=== PATIENT | female | born 1960 | race Caucasian/White ===

== ENCOUNTER → 2016-04-28 | Outpatient (CLI) | payer BC ==
[~2016-04-28] MED LIST: AZIT250T PO; CLN200 PO; FLUO20CA34 PO; HYDR-5688 PO; PRM625 PO; SULF800T23 PO; ZTHM250 PO
== END | disposition home or self-care (01) ==
LOC: C.PATH 15:53
PROVIDERS: ATTEND Obstetrics & Gynecology
DX: N90.89 Other specified noninflammatory disorders of vulva and perineum (principal)

== ENCOUNTER → 2016-05-14 | Outpatient (CLI) | payer BC ==
--- NOTE | 2016-05-14 17:07 | MAMMOGRAPHY REPORT ---
BILATERAL DIGITAL SCREENING MAMMOGRAM TOMOSYNTHESIS WITH CAD: 05/14/2016 CLINICAL HISTORY: Routine screening. Patient has no complaints. TECHNIQUE: Breast tomosynthesis in addition to standard 2D mammography was performed. Current study was also evaluated with a Computer Aided Detection (CAD) system. COMPARISON: Comparison is made to exams dated: 02/27/2015 mammogram, 01/18/2014 mammogram, 01/17/2013 mammogram, 11/20/2009 mammogram - [facility], 07/24/2008, and 07/23/2007. BREAST COMPOSITION: The tissue of both breasts is almost entirely fatty. FINDINGS: A 5 mm low-density circumscribed mass in the 12:00 anterior left breast has not significan tly changed in size dating back to 01/17/2013, therefore likely benign. No new suspicious mass, arc hitectural distortion or cluster of microcalcifications is seen. IMPRESSION: ACR BI-RADS CATEGORY 1: NEGATIVE There is no mammographic evidence of malignancy. A 1 year screening mammogram is recommended. The p atient will receive written notification of the results. Approximately 10% of breast cancers are not detected with mammography. A negative mammographic repor t should not delay biopsy if a clinically suggestive mass is present. Anila Pittman M.D. ay/:05/14/2016 15:32:59 [place] St[employer]cher: Lorraine GUNN)(Nick), [facility] letter sent: Normal 1/2 BI-RADS Code: ACR BI-RADS Category 1: Negative
== END | disposition home or self-care (01) ==
LOC: C.MAMM 10:34
PROVIDERS: ATTEND Internal Medicine
DX: Z12.31 Encounter for screening mammogram for malignant neoplasm of breast (principal)

== ENCOUNTER → 2016-06-12 | Outpatient (CLI) | payer BC | END | disposition home or self-care (01) | LOC: C.LABSPEC 15:21 | PROVIDERS: ATTEND Internal Medicine | DX: J02.9 Acute pharyngitis, unspecified (principal) ==

== ENCOUNTER → 2016-07-09 | Outpatient (CLI) | payer BC | END | disposition home or self-care (01) | LOC: C.LABSPEC 10:22 | PROVIDERS: ATTEND Internal Medicine | DX: B34.9 Viral infection, unspecified (principal) ==

== ENCOUNTER 2016-07-13 15:28 | Emergency (ER) | payer BC ==
[~2016-07-13] VITALS: Ht 157.5 cm; Wt 71.8 kg
[~2016-07-13 15:28] MED LIST changes: -AZIT250T PO; -FLUO20CA34 PO; -PRM625 PO; -ZTHM250 PO
[2016-07-13 15:33] VITALS: TEMP 36.9; Ht 157.5 cm; Wt 71.8 kg
--- NOTE | 2016-07-13 16:37 | DIAGNOSTIC IMAGING REPORT ---
RIGHT WRIST W/NAVICULAR MIN 3 VIEWS CLINICAL HISTORY: Right wrist pain and swelling following fall. COMPARISON: None FINDINGS: No acute fracture is identified within the right wrist. Alignment is anatomic. Mild degenerative changes are present. IMPRESSION: No acute fracture or dislocation of the right wrist. Electronically signed by: Keith Gaytan M.D. 07/13/2016 4:36 PM Dictated Date/Time: 07/13/2016 4:36 PM
--- NOTE | 2016-07-13 16:39 | DIAGNOSTIC IMAGING REPORT ---
LEFT WRIST W/NAVICULAR MIN 3 VIEWS CLINICAL HISTORY: Left wrist pain, bruising COMPARISON: None FINDINGS: Alignment of the left wrist is anatomic. No acute fracture is identified. Mild degenerative changes are present. IMPRESSION: No acute fracture or dislocation of the left wrist. Electronically signed by: Keith Gaytan M.D. 07/13/2016 4:37 PM Dictated Date/Time: 07/13/2016 4:37 PM
--- NOTE | 2016-07-13 16:55 | EMERGENCY ROOM VISIT NOTE ---
ED Visit Note First contact with patient: 15:39 CHIEF COMPLAINT: Wrist injury HISTORY OF PRESENT ILLNESS: This 56-year-old right-hand dominant female patient presents to the emergency department ambulatory complaining of pain in the right wrist and mild pain in the left wrist after a fall which occurred yesterday. The patient reports that she was rollerskating with her grandchildren and fell, landing onto her back. She attempted to catch herself with both of her wrists. She reports moderate pain in the right wrist and only minimal pain in the left wrist. She does state there is some bruising in the left wrist. She states the right wrist is swollen and very painful to move. She rates the discomfort a 6.5/10. She has not been taking anything at home for the pain. No laceration, no weakness. No numbness or tingling. The patient denies any other injury. The patient is able to move their fingers and elbows without difficulty. The patient has not had previous fractures of either wrist. REVIEW OF SYSTEMS: A 6 system review of systems was performed with positives and pertinent negatives in the HPI. ALLERGIES: No known drug allergies MEDICATIONS: Premarin, Prozac PMH: No significant past medical history. SOCIAL HISTORY: The patient lives locally with family. PHYSICAL EXAM: Vital Signs: Reviewed Nurse's notes, vital signs stable. GENERAL : This is a 56-year-old female, in no acute distress, but appears to be in pain , well-developed, well-nourished. NEURO: Alert and oriented to person place and time. Normal sensation to light and sharp touch. MUSCULOSKELETAL: There is no deformity of either wrist. There is a moderate amount of edema and tenderness over the dorsal aspect of the right wrist. Range of motion of the right wrist is limited secondary to patient discomfort. There is no significant ecchymosis or snuffbox tenderness. There is a small amount of ecchymosis over the ventral aspect of the left wrist. Mild tenderness to palpation. No snuff box tenderness or significant edema. Mud Engineer strength is 5/5 bilaterally. Range of motion of the fingers is full bilaterally. No tenderness of either proximal forearm. Radial pulses 2+. SKIN: Normal and intact. The hand is warm and well perfused with capillary refill less than 2 seconds. RADIOGRAPHIC FINDINGS: RIGHT WRIST W/NAVICULAR MIN 3 VIEWS CLINICAL HISTORY: Right wrist pain and swelling following fall. COMPARISON: None FINDINGS: No acute fracture is identified within the right wrist. Alignment is anatomic. Mild degenerative changes are present. IMPRESSION: No acute fracture or dislocation of the right wrist. LEFT WRIST W/NAVICULAR MIN 3 VIEWS CLINICAL HISTORY: Left wrist pain, bruising COMPARISON: None FINDINGS: Alignment of the left wrist is anatomic. No acute fracture is identified. Mild degenerative changes are present. IMPRESSION: No acute fracture or dislocation of the left wrist. EMERGENCY DEPARTMENT COURSE: I examined the patient. X-rays of bilateral wrists were obtained and read by radiology. No fractures were identified in either wrist. The patient does have significant tenderness and moderate swelling of the right wrist. This wrist was placed in a wrist lacer brace and the patient was instructed to follow-up with orthopedics if she has continued pain or any worsening symptoms. Conservative measures were discussed. The patient verbalized understanding of my assessment and treatment plan and was discharged home in good condition. DIAGNOSIS: Wrist injury Problem List Medical Problems: (1) Depressive Disorder Nec Status: Chronic Surgical Problems: (1) History of hysterectomy Status: Resolved Current/Historical Medications Scheduled Estrogens, Conjugated (Premarin), 0.625 MG PO DAILY Fluoxetine Hcl (Prozac), 20 MG PO DAILY Allergies Coded Allergies: No Known Allergies (Verified , 07/13/16) Vital Signs Date Time Temp Pulse Resp B/P Pulse Ox O2 Delivery O2 Flow Rate FiO2 07/13/16 17:09 72 18 138/94 98 07/13/16 15:33 36.9 82 16 144/84 97 Room Air Departure Information Impression Primary Impression: Wrist injuries Dispostion Home / Self-Care Condition GOOD Referrals Lorne Liao M.D. (PCP) Patient Instructions My [facility] Additional Instructions You have been treated in the Emergency Department for Wrist Pain. For pain control, you can use the following cdaw-oqa-chynyss medicines (if >12 yo): - Regular strength (325mg/tab) Tylenol (acetaminophen) 2 tabs every 4-6 hours as needed. Do not exceed 12 tablets in a 24 hour period. Avoid taking more than 4 grams (4000 mg) of Tylenol per day. This includes any other sources of acetaminophen you may take on a regular basis. - Regular strength (200 mg/tab) Advil (ibuprofen) 1-2 tabs every 4-6 hours as needed. Do not exceed a dose of 3200 mg per day. If this is a recent injury (<24 hrs), ice can be applied to the area of pain for the first 3 days to help decrease pain and inflammation. Wear the brace for 1 week, then as needed for pain or difficulty moving the wrist. Follow-up with orthopedics if you have persistent pain in one week or any worsening symptoms. Return to the Emergency Department if your current symptoms worsen despite treatment course outlined above, or if you develop any of the following symptoms : intractable pain despite aforementioned treatment course or new onset of numbness or tingling of the fingers. Problem Qualifiers Primary Impression: Wrist injuries Encounter type: initial encounter Laterality: unspecified laterality Qualified Codes: S69.90XA - Unspecified injury of unspecified wrist, hand and finger(s), initial encounter
[2016-07-13 17:09] VITALS: BP 138/94; PULSE 72; O2SAT 98
[2016-11-30] MEDS ORDERED: PRM625 PO (11:36)
[2016-11-30] MEDS ORDERED: FLUO20CA34 PO (11:36)
== END 2016-07-13 17:11 | disposition home or self-care (01) ==
LOC: C.EDB 15:29 → C.EDD 17:11
DX: S69.91XA Unspecified injury of right wrist, hand and finger(s), initial encounter (principal); S69.92XA Unspecified injury of left wrist, hand and finger(s), initial encounter; W18.30XA Fall on same level, unspecified, initial encounter; Y93.51 Activity, roller skating (inline) and skateboarding; F32.9 Major depressive disorder, single episode, unspecified

== ENCOUNTER 2016-11-30 18:45 | Emergency (ER) | payer BC ==
[~2016-11-30] VITALS: Ht 157.5 cm; Wt 69.9 kg
[~2016-11-30 18:45] MED LIST changes: -CLN200 PO; +FLUO20CA34 PO; -HYDR-5688 PO; +PRM625 PO; -SULF800T23 PO
[2016-11-30 18:48] VITALS: TEMP 36.8; Ht 157.5 cm; Wt 69.9 kg
[2016-11-30] MEDS ORDERED: ONDANSETRON INJ 2 MG/ML 2 ML VIAL IV STA (19:07)
[2016-11-30] MEDS ORDERED: GI COCKTAIL PO STA (19:07)
[2016-11-30] MEDS ORDERED: FAMOTIDINE 20MG/102 ML D5W IV STA (19:07)
[2016-11-30] MEDS ORDERED: SODIUM CHLORIDE 0.9% 1000ML 1,000 ML IV STA (19:07)
[2016-11-30] MEDS ORDERED: LIDOCAINE HCL 2% VISC SOLN 20 ML UDC ONE (19:19)
[2016-11-30] MEDS ORDERED: ALUMINUM/MAGNESIUM SUSP 30 ML UDC ONE (19:19)
--- NOTE | 2016-11-30 19:20 | EMERGENCY ROOM VISIT NOTE ---
History Report prepared by Carly: Lakshmi Beltran Under the Supervision of: Dr. Mik Winters M.D. First contact with patient: 18:56 Chief Complaint: CHEST PAIN Stated Complaint: CHEST PAIN, NUMBNESS IN RT ARM Nursing Triage Summary: Pt mid chest pain into right elbow. Pain started Thursday and it's getting worse. Denies known injury. Sharp at times, ache contstant. History of Present Illness The patient is a 56 year old female who presents to the Emergency Room with complaints of an episode of chest pain starting five days ago. The patient states that the pain was dull. She states that it then became worse two days ago. She states that this is when she started alternating Tylenol and Advil, but received little relief. The patient notes that the pain feels like it is constantly aching. She notes that the pain goes into her arm and has caused her armpit to become numb. The patient complains of shortness of breath, loss of appetite, diaphoresis, back pain, and fatigue. She notes her symptoms are worse with exertion. The patient denies ever having these symptoms before, nausea, vomiting, chills, fever, cough, congestion, recent travel, leg swelling, a history of blood clots, and a history of gallstones. The patient notes a history of squamous cell skin cancer and peptic ulcer. She notes a family history of CAD, cancer, and blood clots. Source of History: patient Onset: five days ago Position: chest Quality: ache, dull Timing: other (episode) Modifying Factors (Worsening): exertion Associated Symptoms: + diaphoresis, + SOB, + back pain, + fatigue, + numbness, No fevers, No chills, No cough, No nausea, No vomiting Note: The patient complains of loss of appetite. The patient denies ever having these symptoms before, congestion, recent travel, leg swelling, a history of blood clots, and a history of gallstones. Review of Systems See HPI for pertinent positives and negatives. A total of ten systems were reviewed and were otherwise negative. Past Medical & Surgical Medical Problems: (1) Depressive Disorder Nec (2) Peptic ulcer (3) Squamous cell skin cancer Surgical Problems: (1) History of hysterectomy Family History Blood clots Cancer Heart disease Social History Smoking Status: Current Every Day Smoker Housing Status: lives with family Occupation Status: employed Current/Historical Medications Scheduled Azithromycin (Azithromycin), 1 TAB PO DAILY Azithromycin (Zithromax), 250 MG PO DAILY Estrogens, Conjugated (Premarin), 0.625 MG PO DAILY Fluoxetine Hcl (Prozac), 20 MG PO DAILY Allergies Coded Allergies: No Known Allergies (Verified , 07/13/16) Physical Exam Vital Signs Date Time Temp Pulse Resp B/P (MAP) Pulse Ox O2 Delivery O2 Flow Rate FiO2 11/30/16 23:20 66 11/30/16 22:53 69 18 149/80 98 Room Air 11/30/16 20:51 64 18 142/80 97 Room Air 11/30/16 19:38 70 11/30/16 19:32 98 Room Air 11/30/16 18:51 98 Room Air 11/30/16 18:48 36.8 90 18 165/89 98 Room Air Physical Exam GENERAL: Awake, alert, well-appearing, in no acute distress HENT: Normocephalic, atraumatic. Dry mucus membranes. EYES: Normal conjunctiva. Sclera non-icteric. NECK: Supple. No nuchal rigidity. FROM. No JVD. RESPIRATORY: Clear to auscultation. CARDIAC: Regular rate, normal rhythm. Extremities warm and well perfused. Pulses equal. ABDOMEN: Soft, non-distended. Mild epigastric and RUQ discomfort. No rebound or guarding. No masses. Negative Carey's sign. No peritoneal signs. RECTAL: Deferred. MUSCULOSKELETAL: Reproducible pain in the right scapular area and right anterior chest wall. The back is symmetrical on inspection without obvious abnormality. There is no CVA tenderness to palpation. No joint edema. LOWER EXTREMITIES: Calves are equal size bilaterally and non-tender. No edema. No discoloration. NEURO: Normal sensorium. No sensory or motor deficits noted. SKIN: No rash or jaundice noted. Medical Decision & Procedures ER Provider Diagnostic Interpretation: Radiology results as stated below per my review and radiologist interpretation: CHEST ONE VIEW PORTABLE CLINICAL HISTORY: Chest pain. COMPARISON STUDY: Chest radiograph August 13, 2011. FINDINGS: Lung volumes are normal. No pneumothorax or pleural effusion is present. There is no consolidation to suggest pneumonia. Cardiomediastinal silhouette is normal. Appearance of the chest is unchanged. IMPRESSION: No acute cardiopulmonary findings. Electronically signed by: Keith Gaytan M.D. 11/30/2016 7:25 PM Dictated Date/Time: 11/30/2016 7:25 PM Laboratory Results 11/30/16 19:25 Red Blood Count 4.49, Mean Corpuscular Volume 94.0, Mean Corpuscular Hemoglobin 31.4, Mean Corpuscular Hemoglobin Concent 33.4, Mean Platelet Volume 9.9, Neutrophils (%) (Auto) 59.6, Lymphocytes (%) (Auto) 29.2, Monocytes (%) (Auto) 10.0, Eosinophils (%) (Auto) 0.7, Basophils (%) (Auto) 0.2, Neutrophils # (Auto ) 5.50, Lymphocytes # (Auto) 2.69, Monocytes # (Auto) 0.92, Eosinophils # (Auto ) 0.06, Basophils # (Auto) 0.02 11/30/16 19:25 Test 11/30/16 19:25 11/30/16 20:15 White Blood Count 9.22 K/uL (4.8-10.8) Red Blood Count 4.49 M/uL (4.2-5.4) Hemoglobin 14.1 g/dL (12.0-16.0) Hematocrit 42.2 % (37-47) Mean Corpuscular Volume 94.0 fL (80-100) Mean Corpuscular Hemoglobin 31.4 pg (25-34) Mean Corpuscular Hemoglobin Concent 33.4 g/dl (32-36) Platelet Count 277 K/uL (130-400) Mean Platelet Volume 9.9 fL (7.4-10.4) Neutrophils (%) (Auto) 59.6 % Lymphocytes (%) (Auto) 29.2 % Monocytes (%) (Auto) 10.0 % Eosinophils (%) (Auto) 0.7 % Basophils (%) (Auto) 0.2 % Neutrophils # (Auto) 5.50 K/uL (1.4-6.5) Lymphocytes # (Auto) 2.69 K/uL (1.2-3.4) Monocytes # (Auto) 0.92 K/uL (0.11-0.59) Eosinophils # (Auto) 0.06 K/uL (0-0.5) Basophils # (Auto) 0.02 K/uL (0-0.2) RDW Standard Deviation 47.0 fL (36.4-46.3) RDW Coefficient of Variation 13.8 % (11.5-14.5) Immature Granulocyte % (Auto) 0.3 % Immature Granulocyte # (Auto) 0.03 K/uL (0.00-0.02) Anion Gap 9.0 mmol/L (3-11) Est Creatinine Clear Calc Drug Dose 74.6 ml/min Estimated GFR () 98.4 Estimated GFR (Non- 84.9 BUN/Creatinine Ratio 14.7 (10-20) Calcium Level 8.8 mg/dl (8.5-10.1) Total Bilirubin 0.4 mg/dl (0.2-1) Direct Bilirubin < 0.1 mg/dl (0-0.2) Aspartate Amino Transf (AST/SGOT) 22 U/L (15-37) Alanine Aminotransferase (ALT/SGPT) 31 U/L (12-78) Alkaline Phosphatase 94 U/L (45-117) Troponin I < 0.015 ng/ml (0-0.045) Total Protein 7.2 gm/dl (6.4-8.2) Albumin 3.8 gm/dl (3.4-5.0) Lipase 130 U/L (73-393) D-Dimer 300 ug/L FEU (0-500) Laboratory results reviewed by me Medications Administered Medications (Trade) Dose Ordered Sig/Perry Route Start Time Stop Time Status Last Admin Dose Admin Sodium Chloride 1,000 ml @ 999 mls/hr Q1H1M STAT IV 11/30/16 19:07 11/30/16 20:18 DC 11/30/16 19:31 999 MLS/HR Famotidine (Pepcid 20mg/100 ml) 20 mg ONE STAT IV 11/30/16 19:07 11/30/16 19:12 DC 11/30/16 19:27 20 MG Ondansetron HCl (Zofran Inj) 4 mg NOW STAT IV 11/30/16 19:07 11/30/16 19:12 DC 11/30/16 19:26 4 MG Lidocaine HCl (Viscous Lidocaine 2% Soln) 20 ml STK-MED ONCE .ROUTE 11/30/16 19:19 11/30/16 19:20 DC 11/30/16 19:26 20 ML Al Hydroxide/Mg Hydroxide (Maalox Susp) 30 ml STK-MED ONCE .ROUTE 11/30/16 19:19 11/30/16 19:20 DC 11/30/16 19:27 30 ML Albuterol/ Ipratropium (Duoneb) 3 ml NOW STAT INH 11/30/16 21:50 11/30/16 21:51 DC 11/30/16 21:59 3 ML Ketorolac Tromethamine (Toradol Inj) 30 mg NOW STAT IV 11/30/16 21:50 11/30/16 21:51 DC 11/30/16 21:59 30 MG Azithromycin (Zithromax Tab) 500 mg NOW ONCE PO 11/30/16 23:15 11/30/16 23:16 DC 11/30/16 23:17 500 MG ECG Indication: chest pain Rate (beats per minute): 79 Rhythm: normal sinus Findings: no acute ischemic change, other (normal axis) ED Course 1857: The patient was evaluated in room C11B. A complete history and physical exam was performed. 1906: Ordered Zofran Inj 4 mg IV, GI Cocktail 24 ml PO, Famotidine 20 mg IV, NSS 1000 ml @ 999 mls/hr IV. 1918: Ordered Maalox Susp 30 ml .ROUTE, Lidocaine HCl 20 ml .ROUTE. 2137: I reevaluated the patient and she is doing okay. 2149: Ordered Toradol Inj 30 mg IV, Duoneb 3 ml INH. 2: I reevaluated the patient and she is doing well. 5: Ordered Zithromax Tab 500 mg PO. 2328: I reevaluated the patient. Discussed results and discharge instructions: She verbalized understanding and agreement. The patient is ready for discharge. Medical Decision I reviewed the patient's past medical history, medications, and the nursing notes as described above. Differential diagnoses include costochondritis, ACS, PE, pneumonia, bronchitis, gastritis, peptic ulcer, biliary colic. Patient is a 55-year-old woman currently on Premarin status post hysterectomy and oophorectomy presents to the emergency department with chest pain that has been constant since Thursday with associated shortness of breath per history of present illness. Arrival the patient is in no acute distress. Afebrile with stable vital signs. D-dimer negative. Troponin negative in the setting of several days of constant symptoms. EKG unremarkable. No ST changes, pr depressions, or spotick sign. X-ray negative. Heart score would be 2, low risk. Labs otherwise unremarkable. Bedside ultrasound negative for gallstones or pericholecystic fluid. Patient has reproducible right sided chest and right scapular pain with palpation. The patient reports worse pain with inspiration. Symptoms most likely consistent with muscle skeletal, costochondritis also possible pleurisy in the setting of the patient's extensive smoking history. Thus, recommending analgesia with ibuprofen and Tylenol and will also had a azithromycin for pleurisy. Findings and plan for follow-up d/w patient. Patient agreeable and d/c'd per discharge instructions. Impression Primary Impression: Chest wall pain Additional Impression: Pleurisy Scribe Attestation The scribe's documentation has been prepared under my direction and personally reviewed by me in its entirety. I confirm that the note above accurately reflects all work, treatment, procedures, and medical decision making performed by me. Departure Information Dispostion Home / Self-Care Prescriptions Azithromycin (Zithromax) 250 Mg Tab 250 MG PO DAILY, #4 TAB Prov: Mik Winters M.D. 11/30/16 Azithromycin (Azithromycin) 250 Mg Tab 1 TAB PO DAILY for 4 Days, #4 TABS Prov: Mik Winters M.D. 11/30/16 Referrals Lorne Liao M.D. (PCP) Forms HOME CARE DOCUMENTATION FORM, IMPORTANT VISIT INFORMATION Patient Instructions ED Chest Pain [facility]urisy, [facility] Additional Instructions Please follow up with your primary care physician tomorrow for reevaluation. Your symptoms are likely musculoskeletal but may also be due to an infection in the setting of your smoking history. Otherwise, Your exam did not show signs of an emergent condition. Take azithromycin as directed. Tylenol and ibuprofen for pain as needed. You should consider quitting smoking as this will improve your symptoms. Return to the emergency department for worsening symptoms as described in the accompanying instructions. Problem Qualifiers
--- NOTE | 2016-11-30 19:26 | DIAGNOSTIC IMAGING REPORT ---
CHEST ONE VIEW PORTABLE CLINICAL HISTORY: Chest pain. COMPARISON STUDY: Chest radiograph August 13, 2011. FINDINGS: Lung volumes are normal. No pneumothorax or pleural effusion is present. There is no consolidation to suggest pneumonia. Cardiomediastinal silhouette is normal. Appearance of the chest is unchanged. IMPRESSION: No acute cardiopulmonary findings. Electronically signed by: Keith Gaytan M.D. 11/30/2016 7:25 PM Dictated Date/Time: 11/30/2016 7:25 PM
[2016-11-30 19:32] VITALS: O2SAT 98
[2016-11-30 19:37] LABS: BASO % 0.2 %; BASO ABS # 0.02 K/uL (0-0.2); COMPLETE YES; EOS % 0.7 %; HEMATOCRIT 42.2 % (37-47); IG% 0.3 %; LYMPH % 29.2 %; LYMPH ABS # 2.69 K/uL (1.2-3.4); MEAN CORPUSCULAR HEMOGLOBIN 31.4 pg (25-34); MEAN CORPUSCULAR HGB CONC 33.4 g/dl (32-36); MEAN PLATELET VOLUME 9.9 fL (7.4-10.4); NEUT % 59.6 %; PLATELET COUNT 277 K/uL (130-400); RED BLOOD COUNT 4.49 M/uL (4.2-5.4); WHITE BLOOD COUNT 9.22 K/uL (4.8-10.8)
[2016-11-30 19:53] LABS: ALT/SGPT 31 U/L (12-78); BLOOD UREA NITROGEN 12 mg/dl (7-18); BUN/CREATININE RATIO 14.7 (10-20); CALCIUM 8.8 mg/dl (8.5-10.1); CARBON DIOXIDE 25 mmol/L (21-32); CHLORIDE 108 mmol/L (98-107); CREATININE 0.79 mg/dl (0.60-1.20); GLUCOSE 94 mg/dl (70-99); POTASSIUM 3.5 mmol/L (3.5-5.1); SODIUM 142 mmol/L (136-145)
[2016-11-30 19:58] LABS: ALKALINE PHOSPHATASE 94 U/L (45-117); AST/SGOT 22 U/L (15-37)
[2016-11-30] MEDS ORDERED: KETOROLAC TROMETHAMINE 30 MG/ML VIAL IV STA (21:50)
[2016-11-30] MEDS ORDERED: ALBUT/IPRATROP 3MG/0.5MG NEB 3 ML VIAL INH STA (21:50)
[2016-11-30 22:53] VITALS: BP 149/80; O2SAT 98
[2016-11-30] MEDS ORDERED: ZTHM250 PO (23:07)
[2016-11-30] MEDS ORDERED: AZIT250T PO (23:07)
[2016-11-30] MEDS ORDERED: AZITHROMYCIN 250 MG TAB PO ONE (23:15)
[2016-11-30 23:20] VITALS: PULSE 66
== END 2016-11-30 23:28 | disposition home or self-care (01) ==
LOC: C.EDB 18:46 → C.EDC 23:28
DX: R07.89 Other chest pain (principal); R09.1 Pleurisy; F32.9 Major depressive disorder, single episode, unspecified; F17.200 Nicotine dependence, unspecified, uncomplicated; Z87.11 Personal history of peptic ulcer disease; Z85.828 Personal history of other malignant neoplasm of skin; Z90.710 Acquired absence of both cervix and uterus; Z90.721 Acquired absence of ovaries, unilateral; Z82.49 Family history of ischemic heart disease and other diseases of the circulatory system; Z79.899 Other long term (current) drug therapy

== ENCOUNTER → 2017-02-16 | Outpatient (CLI) | payer BC ==
[~2017-02-16] MED LIST changes: +AZIT-57 PO; +AZIT250T PO
== END | disposition home or self-care (01) ==
LOC: C.PAPS 11:40
PROVIDERS: ATTEND Obstetrics & Gynecology
DX: Z01.419 Encounter for gynecological examination (general) (routine) without abnormal findings (principal)

== ENCOUNTER → 2017-05-15 | Outpatient (CLI) | payer OTHER ==
--- NOTE | 2017-05-18 15:50 | MAMMOGRAPHY REPORT ---
BILATERAL DIGITAL SCREENING MAMMOGRAM TOMOSYNTHESIS WITH CAD: 05/15/2017 CLINICAL HISTORY: Routine screening. TECHNIQUE: Breast tomosynthesis in addition to standard 2D mammography was performed. Current study was also evaluated with a Computer Aided Detection (CAD) system. COMPARISON: Comparison is made to exams dated: 05/14/2016 mammogram, 02/27/2015 mammogram, 01/18/2014 mammogram, 01/17/2013 mammogram, 11/20/2009 mammogram - [facility], and 07/24/2008. BREAST COMPOSITION: There are scattered areas of fibroglandular density in both breasts. FINDINGS: No suspicious masses, calcifications, or areas of architectural distortion are noted in ei ther breast. There has been no significant interval change compared to prior exams. IMPRESSION: ACR BI-RADS CATEGORY 1: NEGATIVE There is no mammographic evidence of malignancy. A 1 year screening mammogram is recommended. The pa tient will receive written notification of the results. Approximately 10% of breast cancers are not detected with mammography. A negative mammographic report should not delay biopsy if a clinically suggestive mass is present. Megan Fair M.D. /:05/15/2017 15:35:37 Airline Stewardess: Sandi GUNN)(Nick), [facility] letter sent: Normal 1/2 BI-RADS Code: ACR BI-RADS Category 1: Negative
== END | disposition home or self-care (01) ==
LOC: C.MAMM 14:53
PROVIDERS: ATTEND Internal Medicine
DX: Z12.31 Encounter for screening mammogram for malignant neoplasm of breast (principal)

== ENCOUNTER → 2017-07-01 | Outpatient (CLI) | payer OTHER ==
[~2017-07-01] MED LIST changes: -AZIT250T PO
[2017-07-01 18:41] LABS: INFLUENZA B ANTIGEN Neg for Influ B (NEG)
== END | disposition home or self-care (01) ==
LOC: C.LAB 17:00
PROVIDERS: ATTEND Internal Medicine
DX: B34.9 Viral infection, unspecified (principal)